=== PATIENT | female | born 1950 | race Caucasian/White ===

== ENCOUNTER → 2020-10-17 10:16 | Outpatient (CLI) | payer OTHER, SELFPAY ==
--- NOTE | ~2020-10-17 | MM_ITS ---
EXAMINATION: MM screening [facility] w chrissy HISTORY: Screening TECHNIQUE: Craniocaudal and mediolateral oblique 3-D tomosynthesis images were obtained and synthetic 2-D images were generated. CAD analysis was submitted and interpreted. COMPARISON: Comparison to multiple prior studies sequentially, with oldest reviewed study dated 07/04. BREAST PARENCHYMAL COMPOSITION: There are scattered areas of fibroglandular density. FINDINGS: There is no evidence of suspicious mass, calcification, or architectural distortion to sugg est malignancy in either breast. There has been no suspicious interval change. IMPRESSION: 1. No mammographic evidence of malignancy. 2. Recommend routine screening mammography in one year. BI-RADS Category 1: Negative Reviewed, dictated and finalized at location A.
--- NOTE | ~2020-10-17 | DEXA_ITS ---
Bone Density Report Name: Kasey Vega Age: 69 Sex: Female Ethnicity: White Date of : 1950 Indication: osteopenia; postmenopausal Referring Provider: Rina Cagle Study: Bone densitometry was performed. Exam Date: October 17, 2020 Accession number: [id number] Bone Density: Region BMD T-score Z-score Classification AP Spine (L1-L4) 0.881 -1.5 0.7 Osteopenia Femoral Neck (Left) 0.762 -0.8 1.1 Normal Total Hip (Left) 0.916 -0.2 1.4 Normal Femoral Neck (Right) 0.758 -0.8 1.1 Normal Total Hip (Right) 0.871 -0.6 1.0 Normal Total Hip Mean 0.894 -0.4 1.2 Normal World Health Organization criteria for BMD impression classify patients as: Normal (T-score at or above -1.0), Osteopenia (T-score between -1.0 and -2.5), or Osteoporosis (T-score at or below -2.5). 10-year Fracture Risk(1): Major Osteoporotic Fracture 8.7% Hip Fracture 0.9% Reported Risk Factors: [place] (), Neck BMD=0.758, BMI=27.3 (1) FRAX(R) Version 3.08. Fracture probability calculated for an untreated patient. Fracture probability may be lower if the patient has received treatment. Previous Exams: Region Exam Age BMD T-score BMD Change BMD Change Date g/cm2 vs Baseline vs Previous AP Spine(L1-L4) 10/17/2020 69 0.881 -1.5 -0.026* -0.022 08/29/2016 65 0.903 -1.3 -0.004 -0.018 07/04/2014 63 0.920 -1.2 0.014 0.009 04/28/2012 61 0.912 -1.2 0.005 -0.003 01/19/2010 59 0.915 -1.2 0.008 -0.017 10/28/2007 56 0.932 -1.0 0.025* -0.020 09/12/2006 55 0.952 -0.9 0.046* 0.046* 07/25/2004 53 0.906 -1.3 Total Hip(Left) 10/17/2020 69 0.916 -0.2 -0.046* -0.033* 08/29/2016 65 0.949 0.1 -0.014 -0.021 07/04/2014 63 0.970 0.2 0.007 -0.044* 04/28/2012 61 1.013 0.6 0.051* 0.035* 01/19/2010 59 0.978 0.3 0.016 -0.047* 10/28/2007 56 1.025 0.7 0.063* 0.031* 09/12/2006 55 0.994 0.4 0.032* 0.032* 07/25/2004 53 0.962 0.2 Total Hip(Right) 10/17/2020 69 0.871 -0.6 -0.047* -0.033* 08/29/2016 65 0.904 -0.3 -0.014 -0.048* 07/04/2014 63 0.952 0.1 0.034* -0.016 04/28/2012 61 0.969 0.2 0.051* 0.018 01/19/2010 59 0.950 0.1 0.032* -0.044* 10/28/2007 56 0.995 0.4 0.077* 0.018 09/12/2006 55 0.977 0.3 0.059* 0.059*
== END ==
PROVIDERS: PCP Internal Medicine; Visit Provider Student in an Organized Health Care Education/Training Program
DX: Z12.31 Encounter for screening mammogram for malignant neoplasm of breast (principal); Z78.0 Asymptomatic menopausal state; M85.88 Other specified disorders of bone density and structure, other site
CPT/HCPCS: 77063; 77067; 77080

== ENCOUNTER → 2021-10-30 10:24 | Outpatient (CLI) | payer OTHER, SELFPAY ==
--- NOTE | ~2021-10-30 | MM_ITS ---
EXAMINATION: MM screening [facility] w chrissy HISTORY: Screening TECHNIQUE: Craniocaudal and mediolateral oblique 3-D tomosynthesis images were obtained and synthetic 2-D images were generated. CAD analysis was submitted and interpreted. COMPARISON: Comparison to multiple prior studies sequentially, with oldest reviewed study dated 07/04. BREAST PARENCHYMAL COMPOSITION: There are scattered areas of fibroglandular density. FINDINGS: There is no evidence of suspicious mass, calcification, or architectural distortion to sugg est malignancy in either breast. There has been no suspicious interval change. IMPRESSION: 1. No mammographic evidence of malignancy. 2. Recommend routine screening mammography in one year. BI-RADS Category 1: Negative Reviewed, dictated and finalized at location A.
== END ==
PROVIDERS: PCP Internal Medicine; Visit Provider Student in an Organized Health Care Education/Training Program
DX: Z12.31 Encounter for screening mammogram for malignant neoplasm of breast (principal)
CPT/HCPCS: 77063; 77067

== ENCOUNTER → 2023-03-07 12:10 | Outpatient (CLI) | payer OTHER, SELFPAY ==
--- NOTE | ~2023-03-07 | DEXA_ITS ---
Bone Density Report Name: ALF CABRAL Age: 72 Sex: Female Ethnicity: White Date of : 1950 Indication: osteopenia;postmenopausal Referring Provider: NICANOR FELDMAN Study: Bone densitometry was performed. Exam Date: March 07, 2023 Accession number: [id number] Bone Density: Region BMD T-score Z-score Classification AP Spine (L1-L4) 0.891 -1.4 0.9 Osteopenia Femoral Neck (Left) 0.761 -0.8 1.2 Normal Total Hip (Left) 0.935 -0.1 1.7 Normal Femoral Neck (Right) 0.762 -0.8 1.3 Normal Total Hip (Right) 0.906 -0.3 1.4 Normal Total Hip Mean 0.921 -0.2 1.6 Normal World Health Organization criteria for BMD impression classify patients as: Normal (T-score at or above -1.0), Osteopenia (T-score between -1.0 and -2.5), or Osteoporosis (T-score at or below -2.5). 10-year Fracture Risk(1): Major Osteoporotic Fracture 8.9% Hip Fracture 1.1% Reported Risk Factors: [place] (), Neck BMD=0.762, BMI=28.8 (1) FRAX(R) Version 3.08. Fracture probability calculated for an untreated patient. Fracture probability may be lower if the patient has received treatment. Previous Exams: Region Exam Age BMD T-score BMD Change BMD Change Date g/cm2 vs Baseline vs Previous AP Spine(L1-L4) 03/07/2023 72 0.891 -1.4 -0.015 0.011 10/17/2020 69 0.881 -1.5 -0.026* -0.022 08/29/2016 65 0.903 -1.3 -0.004 -0.018 07/04/2014 63 0.920 -1.2 0.014 0.009 04/28/2012 61 0.912 -1.2 0.005 -0.003 01/19/2010 59 0.915 -1.2 0.008 -0.017 10/28/2007 56 0.932 -1.0 0.025* -0.020 09/12/2006 55 0.952 -0.9 0.046* 0.046* 07/25/2004 53 0.906 -1.3 Total Hip(Left) 03/07/2023 72 0.935 -0.1 -0.028* 0.019 10/17/2020 69 0.916 -0.2 -0.046* -0.033* 08/29/2016 65 0.949 0.1 -0.014 -0.021 07/04/2014 63 0.970 0.2 0.007 -0.044* 04/28/2012 61 1.013 0.6 0.051* 0.035* 01/19/2010 59 0.978 0.3 0.016 -0.047* 10/28/2007 56 1.025 0.7 0.063* 0.031* 09/12/2006 55 0.994 0.4 0.032* 0.032* 07/25/2004 53 0.962 0.2 Total Hip(Right) 03/07/2023 72 0.906 -0.3 -0.012 0.035* 10/17/2020 69 0.871 -0.6 -0.047* -0.033* 08/29/2016 65 0.904 -0.3 -0.014 -0.048* 07/04/2014 63 0.952 0.1 0.034* -0.016 04/28/2012 61 0.969 0.2 0.051* 0.01
--- NOTE | ~2023-03-07 | MM_ITS ---
EXAMINATION: MM screening [facility] BI w chrissy HISTORY: Screening mammogram TECHNIQUE: Craniocaudal and mediolateral oblique 3-D tomosynthesis images were obtained and synthetic 2-D images were generated. CAD analysis was submitted and interpreted. COMPARISON: 10/30/2021, 10/17/2020, 09/09/2017, 08/29/2016 bilateral screening mammogram examinations BREAST PARENCHYMAL COMPOSITION: There are scattered areas of fibroglandular density. FINDINGS: Stable fibroglandular asymmetry. Occasional benign calcifications. There is no evidence of suspicious mass, calcification, or architectural distortion to suggest malignancy in either breast. T here has been no suspicious interval change. IMPRESSION: 1. No mammographic evidence of malignancy. 2. Recommend routine screening mammography in one year. BI-RADS Category 2: Benign finding(s). 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
== END ==
PROVIDERS: PCP Registered Nurse; Visit Provider Registered Nurse
DX: Z12.31 Encounter for screening mammogram for malignant neoplasm of breast (principal); Z78.0 Asymptomatic menopausal state; M85.88 Other specified disorders of bone density and structure, other site
CPT/HCPCS: 77063; 77067; 77080

== ENCOUNTER 2024-05-11 12:23 | Outpatient (CLI) | payer OTHER, SELFPAY | END 2024-05-11 12:24 | disposition home or self-care (01) | LOC: MICIMG 12:23 | PROVIDERS: PCP Nurse Practitioner Family; Visit Provider Nurse Practitioner Family | DX: Z12.31 Encounter for screening mammogram for malignant neoplasm of breast (principal) | CPT/HCPCS: 77063; 77067 ==